=== PATIENT | female | born 1985 | race Two or more races ===

== ENCOUNTER 2017-02-04 10:18 | Emergency (ER) | payer BC ==
[~2017-02-04 10:18] MED LIST: BACTRIM DS TAB1 EAC2 PO; BACTROBAN22 G1 TP; NO HOME MEDS; PROVENTIL HFA6.7 G1 IH; ZITHROMAX250 M1 PO
[2017-02-04 11:09] LABS: PREGNANCY-SERUM NEGATIVE (NEGATIVE)
[2017-02-04 11:13] LABS: CREATININE 0.78 mg/dl (0.50-1.10); eGFR VALUE FOR BLACK >90 mL/Min
== END 2017-02-04 12:00 ==
LOC: EDMED 10:18
PROVIDERS: Emergency Medicine
DX: R07.89 Other chest pain (principal)